=== PATIENT | female | born 1985 | race Two or more races ===

== ENCOUNTER 2023-12-07 13:42 | Emergency (ER) | payer BC ==
[~2023-12-07] VITALS: Ht 162.6 cm; Wt 118.9 kg
[2023-12-07] MEDS ORDERED: HYDR-4902 PO (14:29)
[2023-12-07 15:09] LABS: Basophils # (auto) 0.1 10 ^3/uL (0-0.2); Basophils % (auto) 0.7 % (0.0-2.0); Eosinophils # (auto) 0.1 10 ^3/uL (0-0.8); Eosinophils % (auto) 0.5 % (0.0-7.0); Hemoglobin 13.9 g/dL (12.2-16.2); Lymphocytes # (auto) 2.1 10 ^3/uL (0.4-5.4); Lymphocytes % (auto) 12.2 % (10.0-50.0); Mean Corpuscular Hemoglobin 28.2 pg (28.0-32.0); Mean Corpuscular Hgb Conc. 33.2 g/dL (32.0-36.0); Monocytes # (auto) 0.7 10 ^3/uL (0-1.3); Monocytes % (auto) 4.4 % (0.0-12.0); Neutrophils % (auto) 82.2 % (37.0-80.0); Red Blood Cells 4.94 10^6/uL (4.0-5.20); Red Cell Distribution Width 14.6 % (11.8-14.3)
[2023-12-07 16:19] LABS: Urine Bacteria FEW /hpf (None Seen); Urine Blood 1+ /uL (Negative); Urine Clarity Turbid (Clear); Urine Color Light-Orange (Yellow); Urine Hyaline Cast FEW /lpf (0 - 2); Urine Mucus FEW (None Seen); Urine Protein, UAD 1+ (Negative); Urine Specific Gravity 1.029 (1.001-1.035); Urine Urobilinogen 2 mg/dL (Negative); Urine WBC 2 /hpf (0 - 5); Urine pH 6.5 (5.0-9.0)
[2023-12-07 16:48] VITALS: BP 143/95; PULSE 96; RESP 17; TEMP 98.9; O2SAT 97
== END 2023-12-07 16:50 | disposition home or self-care (01) ==
LOC: ER 13:42
DX: D21.9 Benign neoplasm of connective and other soft tissue, unspecified (principal); R10.2 Pelvic and perineal pain; I10 Essential (primary) hypertension; F12.90 Cannabis use, unspecified, uncomplicated; Z90.49 Acquired absence of other specified parts of digestive tract; Z98.890 Other specified postprocedural states; Z79.891 Long term (current) use of opiate analgesic
CPT/HCPCS: 36415; 81001; 85025

== ENCOUNTER → 2023-12-19 | Outpatient (CLI) | payer BC ==
[~2023-12-19] MED LIST: HYDR-4902 PO
== END | disposition home or self-care (01) ==
LOC: LAB 14:30
PROVIDERS: ATTEND Obstetrics & Gynecology
DX: N93.9 Abnormal uterine and vaginal bleeding, unspecified (principal)

== ENCOUNTER 2024-02-28 06:14 | Inpatient (IN) | payer BC ==
[2024-02-27 07:03] LABS: Basophils # (auto) 0.1 10 ^3/uL (0-0.2); Basophils % (auto) 0.7 % (0.0-2.0); Eosinophils # (auto) 0.2 10 ^3/uL (0-0.8); Eosinophils % (auto) 2.4 % (0.0-7.0); Hematocrit 40.3 % (36.0-46.0); Hemoglobin 13.4 g/dL (12.2-16.2); Lymphocytes # (auto) 2.1 10 ^3/uL (0.4-5.4); Lymphocytes % (auto) 22.5 % (10.0-50.0); Mean Corpuscular Hemoglobin 28.6 pg (28.0-32.0); Mean Corpuscular Hgb Conc. 33.3 g/dL (32.0-36.0); Mean Corpuscular Volume 86.1 fL (80.0-100.0); Monocytes # (auto) 0.5 10 ^3/uL (0-1.3); Monocytes % (auto) 5.2 % (0.0-12.0); Neutrophils # (auto) 6.4 10 ^3/uL (1.6-8.6); Neutrophils % (auto) 69.2 % (37.0-80.0); Nucleated Red Blood Cells % 0.1 %; Platelet Count (auto) 299 10^3/uL (140-450); Red Blood Cells 4.68 10^6/uL (4.0-5.20); Red Cell Distribution Width 15.2 % (11.8-14.3); White Blood Cell 9.2 10^3/uL (4.4-10.8)
[2024-02-27 07:20] LABS: Alanine Aminotransferase 17 U/L (7-40); Albumin 4.5 g/dL (3.2-4.8); Alkaline Phosphatase 82 U/L (46-116); Anion Gap 6 (5-15); Aspartate Aminotransferase < 8 U/L (13-40); BUN/Creatinine Ratio 18.8 (10.0-20.0); Bilirubin, Total 0.3 mg/dL (0.2-1.0); Blood Urea Nitrogen 12 mg/dL (9-23); Calcium 9.2 mg/dL (8.7-10.4); Carbon Dioxide 28 mmol/L (20-30); Chloride 104 mmol/L (98-107); Glucose 108 mg/dL (74-106); Potassium 4.1 mmol/L (3.5-5.1); Sodium 138 mmol/L (136-145); Total Protein 7.1 g/dL (5.7-8.2)
[2024-02-27 07:21] LABS: Urine Bacteria FEW /hpf (None Seen); Urine Blood Negative /uL (Negative); Urine Clarity Turbid (Clear); Urine Color Yellow (Yellow); Urine Mucus FEW (None Seen); Urine Protein, UAD Negative (Negative); Urine Specific Gravity 1.029 (1.001-1.035); Urine Urobilinogen Normal (Negative); Urine WBC 1 /hpf (0 - 5)
[2024-02-27 07:38] LABS: INR 0.94 (0.9-1.15)
[~2024-02-28] VITALS: Ht 162.6 cm; Wt 121.3 kg
[2024-02-28] MEDS ORDERED: CELECOXIB 100 MG CAP ONE (06:43)
[2024-02-28] MEDS ORDERED: GABAPENTIN 300 MG CAP ONE (06:43)
[2024-02-28] MEDS ORDERED: ACETAMINOPHEN IV 100 ML IV ONE ×2 (06:43→11:45)
[2024-02-28] MEDS ORDERED: MIDAZOLAM HCL 2MG/2ML 2ml VIAL (1mg/ml) ONE (07:28)
[2024-02-28] MEDS ORDERED: fentaNYL CITRATE 5 ML ONE (07:28)
[2024-02-28] MEDS ORDERED: MEPERIDINE HCL (25 MG/ML) 1ML VIAL ONE (07:29)
[2024-02-28] MEDS ORDERED: ONDANSETRON HCL 4 MG/2 ML VIAL ONE (07:39)
[2024-02-28] MEDS ORDERED: LIDOCAINE 2% (LOCAL ANESTH.) PF 5ml SDV ONE (07:39)
[2024-02-28] MEDS ORDERED: PROPOFOL 10 MG/ML 20 ML IV ONE (07:39)
[2024-02-28] MEDS: CELECOXIB 100 MG CAP PO ONE (07:45)
[2024-02-28] MEDS: ACETAMINOPHEN IV 1000 MG/100ML (10MG/ML) IV ONE (07:45)
[2024-02-28] MEDS: GABAPENTIN 300 MG CAP PO ONE (07:45)
[2024-02-28] MEDS ORDERED: VASOPRESSIN 20 UNIT/ML ONE (08:17)
[2024-02-28] MEDS ORDERED: BUPIVACAINE 0.5% P/F INJ 10 ML VIAL ONE (08:19)
[2024-02-28] MEDS ORDERED: LIDOCAINE W/ EPINEPHRINE 1% 20ML VIAL ONE (08:19)
[2024-02-28] MEDS ORDERED: DOXAPRAM HCL 20 MG/ML 20ML VIAL INJ IV ONE (10:57)
[2024-02-28] MEDS ORDERED: HYDROmorphone HCL 2 MG/ML VL/or syr IV PRN (11:45)
[2024-02-28 11:48] VITALS: PULSE 91; RESP 19; O2SAT 99
[2024-02-28] MEDS: KETOROLAC TROMETH 30 MG/ML 1ML VIAL IV ONE (12:00)
[2024-02-28] MEDS: ONDANSETRON HCL 4 MG/2 ML VIAL IV ONE (12:00)
[2024-02-28] MEDS: LACTATED RINGER'S 1,000 ML IV SCH (12:00)
[2024-02-28] MEDS ORDERED: MORPHINE SULFATE INJ 2 MG/ml SYRG IV PRN (12:00)
[2024-02-28] MEDS ORDERED: ceFAZolin 1GM/50ML 50 ML IV SCH (14:00)
[2024-02-28 14:56] VITALS: BP 120/76; PULSE 85; RESP 17; TEMP 98.6; O2SAT 96
[2024-02-28] MEDS: ceFAZolin 1GM/50ML 50 ML IV SCH (16:03)
[2024-02-28] MEDS: HYDROcodone-ACET 10/325MG TAB PO PRN (16:11)
[2024-02-28 16:27] VITALS: BP 120/76; PULSE 85; RESP 17; TEMP 98.6; O2SAT 96
[2024-02-28 17:00] VITALS: BP 129/87; PULSE 87; RESP 20; TEMP 98; O2SAT 92
[2024-02-28] MEDS ORDERED: CITA10TA8 PO (17:41)
[2024-02-28] MEDS ORDERED: LISI10TA34 PO (17:41)
[2024-02-28 20:00] VITALS: PULSE 92; RESP 20; O2SAT 92
[2024-02-28 20:45] LABS: Basophils # (auto) 0 10 ^3/uL (0-0.2); Basophils % (auto) 0.2 % (0.0-2.0); Eosinophils # (auto) 0 10 ^3/uL (0-0.8); Hematocrit 37.7 % (36.0-46.0); Hemoglobin 12.3 g/dL (12.2-16.2); Lymphocytes # (auto) 1.2 10 ^3/uL (0.4-5.4); Lymphocytes % (auto) 6.6 % (10.0-50.0); Mean Corpuscular Hemoglobin 28.2 pg (28.0-32.0); Mean Corpuscular Hgb Conc. 32.6 g/dL (32.0-36.0); Mean Corpuscular Volume 86.5 fL (80.0-100.0); Monocytes # (auto) 0.6 10 ^3/uL (0-1.3); Monocytes % (auto) 3.3 % (0.0-12.0); Neutrophils # (auto) 16.8 10 ^3/uL (1.6-8.6); Neutrophils % (auto) 89.9 % (37.0-80.0); Platelet Count (auto) 302 10^3/uL (140-450); Red Blood Cells 4.36 10^6/uL (4.0-5.20); Red Cell Distribution Width 14.9 % (11.8-14.3); White Blood Cell 18.7 10^3/uL (4.4-10.8)
[2024-02-28] MEDS: KETOROLAC TROMETH 30 MG/ML 1ML VIAL IV PRN (20:47)
[2024-02-28] MEDS ORDERED: ROCURONIUM 10MG/ML 10ML VIAL IV ONE (20:47)
[2024-02-28] MEDS: ENOXAPARIN SOD 40 MG/0.4 ML SYRINGE SC ONE (20:47)
[2024-02-28] MEDS ORDERED: METHYLENE BLUE 0.5% 5MG/ML 10ml AMP IV ONE (20:47)
[2024-02-28 21:00] VITALS: BP 136/51; PULSE 92; RESP 20; TEMP 98.8; O2SAT 92
[2024-02-29 01:00] VITALS: BP 112/80; PULSE 91; RESP 18; TEMP 98.3; O2SAT 92
[2024-02-29 05:00] VITALS: BP 106/59; PULSE 83; RESP 19; TEMP 97.9; O2SAT 94
[2024-02-29 06:50] LABS: Basophils # (auto) 0.1 10 ^3/uL (0-0.2); Basophils % (auto) 0.4 % (0.0-2.0); Eosinophils # (auto) 0.1 10 ^3/uL (0-0.8); Eosinophils % (auto) 0.4 % (0.0-7.0); Hematocrit 34.1 % (36.0-46.0); Hemoglobin 11.4 g/dL (12.2-16.2); Lymphocytes # (auto) 2.2 10 ^3/uL (0.4-5.4); Mean Corpuscular Hemoglobin 28.6 pg (28.0-32.0); Mean Corpuscular Hgb Conc. 33.4 g/dL (32.0-36.0); Mean Corpuscular Volume 85.5 fL (80.0-100.0); Monocytes # (auto) 0.7 10 ^3/uL (0-1.3); Monocytes % (auto) 4.9 % (0.0-12.0); Neutrophils # (auto) 10.6 10 ^3/uL (1.6-8.6); Neutrophils % (auto) 78.3 % (37.0-80.0); Platelet Count (auto) 263 10^3/uL (140-450); Red Blood Cells 3.99 10^6/uL (4.0-5.20); White Blood Cell 13.6 10^3/uL (4.4-10.8)
[2024-02-29] MEDS: MILK OF MAGNESIA 30ML SUSP PO SCH (08:20)
[2024-02-29] MEDS: ENOXAPARIN SOD 40 MG/0.4 ML SYRINGE SC SCH (08:22)
[2024-02-29 08:27] LABS: Alanine Aminotransferase 14 U/L (7-40); Albumin 3.9 g/dL (3.2-4.8); Alkaline Phosphatase 70 U/L (46-116); Anion Gap 6 (5-15); Aspartate Aminotransferase 19 U/L (13-40); BUN/Creatinine Ratio 14.3 (10.0-20.0); Bilirubin, Total 0.4 mg/dL (0.2-1.0); Blood Urea Nitrogen 9 mg/dL (9-23); Calcium 8.7 mg/dL (8.7-10.4); Carbon Dioxide 29 mmol/L (20-31); Chloride 102 mmol/L (98-107); Potassium 3.5 mmol/L (3.5-5.1); Sodium 137 mmol/L (136-145)
[2024-02-29 08:30] LABS: Glucose 108 mg/dL (74-106)
[2024-02-29] MEDS ORDERED: HYDR-4798 PO (08:56)
[2024-02-29] MEDS ORDERED: IBUP-1455 PO (08:56)
[2024-02-29 09:22] VITALS: BP 106/55; PULSE 79; RESP 17; TEMP 98.7; O2SAT 97
[2024-02-29] MEDS: MORPHINE SULFATE 4 MG/ML SYR/VIAL IV PRN (09:52)
[2024-02-29 15:09] VITALS: BP 110/58; PULSE 81; RESP 17; TEMP 98.6; O2SAT 97
[2024-02-29 17:00] VITALS: BP 178/96; PULSE 97; RESP 20; TEMP 98.3; O2SAT 98
[2024-02-29 19:50] VITALS: BP 132/86; PULSE 89; RESP 16; TEMP 36.8; O2SAT 94
[2024-02-29] MEDS: ONDANSETRON HCL 4 MG/2 ML VIAL IV PRN (20:21)
== END 2024-02-29 20:48 | disposition home or self-care (01) | DRG 742 ==
LOC: SUR 06:14 → OVERFLOW 11:48 → EAST 14:49
PROVIDERS: ADMIT Obstetrics & Gynecology; ATTEND Obstetrics & Gynecology
PROC: 0UT9FZZ Resection of Uterus, Via Natural or Artificial Opening With Percutaneous Endoscopic Assistance (ICD-10-PCS; 2024-02-28)
PROC: 0UB77ZZ Excision of Bilateral Fallopian Tubes, Via Natural or Artificial Opening (ICD-10-PCS; 2024-02-28)
PROC: 0TJB8ZZ Inspection of Bladder, Via Natural or Artificial Opening Endoscopic (ICD-10-PCS; principal; 2024-02-28 08:41)
DX: D25.9 Leiomyoma of uterus, unspecified (principal); Z68.42 Body mass index [BMI] 45.0-49.9, adult; N92.0 Excessive and frequent menstruation with regular cycle; F32.A Depression, unspecified; E66.01 Morbid (severe) obesity due to excess calories; G89.29 Other chronic pain; I10 Essential (primary) hypertension; Z88.0 Allergy status to penicillin; Z30.2 Encounter for sterilization
CPT/HCPCS: 36415; 80053; 81001; 81025; 84702; 85025; 85610; 85730; 86850; 86900; 86901; 97163; G0378; J0131; J1885; J2001; J2250; J2405; J2704; J3490

== ENCOUNTER → 2024-03-13 | Outpatient (CLI) | payer BC ==
[~2024-03-13] MED LIST changes: +CITA10TA8 PO; +HYDR-4798 PO; -HYDR-4902 PO; +IBUP-1455 PO; +LISI10TA34 PO
[2024-03-13 14:39] LABS: Basophils # (auto) 0.1 10 ^3/uL (0-0.2); Basophils % (auto) 0.9 % (0.0-2.0); Eosinophils # (auto) 0.5 10 ^3/uL (0-0.8); Eosinophils % (auto) 3.1 % (0.0-7.0); Hematocrit 38.8 % (36.0-46.0); Hemoglobin 12.8 g/dL (12.2-16.2); Lymphocytes # (auto) 2.7 10 ^3/uL (0.4-5.4); Lymphocytes % (auto) 18.4 % (10.0-50.0); Mean Corpuscular Hemoglobin 28.1 pg (28.0-32.0); Mean Corpuscular Volume 85.3 fL (80.0-100.0); Monocytes # (auto) 1.1 10 ^3/uL (0-1.3); Monocytes % (auto) 7.2 % (0.0-12.0); Neutrophils # (auto) 10.3 10 ^3/uL (1.6-8.6); Neutrophils % (auto) 70.4 % (37.0-80.0); Platelet Count (auto) 358 10^3/uL (140-450); Red Blood Cells 4.54 10^6/uL (4.0-5.20); Red Cell Distribution Width 15.3 % (11.8-14.3); White Blood Cell 14.7 10^3/uL (4.4-10.8)
[2024-03-13 15:01] LABS: Alanine Aminotransferase 17 U/L (7-40); Alkaline Phosphatase 91 U/L (46-116); Carbon Dioxide 29 mmol/L (20-31); Chloride 103 mmol/L (98-107); Glucose 106 mg/dL (74-106)
[2024-03-13 15:02] LABS: Albumin 4.6 g/dL (3.2-4.8); Anion Gap 7 (5-15); Aspartate Aminotransferase 9 U/L (13-40); BUN/Creatinine Ratio 20.3 (10.0-20.0); Bilirubin, Total 0.3 mg/dL (0.2-1.0); Blood Urea Nitrogen 14 mg/dL (9-23); Potassium 4.2 mmol/L (3.5-5.1); Sodium 139 mmol/L (136-145); Total Protein 7.4 g/dL (5.7-8.2)
== END | disposition home or self-care (01) ==
LOC: LAB 14:09
PROVIDERS: ATTEND Obstetrics & Gynecology
DX: Z01.419 Encounter for gynecological examination (general) (routine) without abnormal findings (principal); M54.50 Low back pain, unspecified; R10.2 Pelvic and perineal pain
CPT/HCPCS: 36415; 80053; 85025; 87086

== ENCOUNTER → 2024-07-07 | Outpatient (CLI) | payer BC ==
[2024-07-07 13:12] LABS: Alanine Aminotransferase 20 U/L (7-40); Albumin 4.8 g/dL (3.2-4.8); Alkaline Phosphatase 82 U/L (46-116); Anion Gap 9 (5-15); Aspartate Aminotransferase 12 U/L (13-40); BUN/Creatinine Ratio 9.7 (10.0-20.0); Blood Urea Nitrogen 7 mg/dL (9-23); Calcium 9.9 mg/dL (8.7-10.4); Carbon Dioxide 27 mmol/L (20-31); Chloride 102 mmol/L (98-107); Glucose 112 mg/dL (74-106); Potassium 4.2 mmol/L (3.5-5.1); Sodium 138 mmol/L (136-145)
[2024-07-07 13:13] LABS: Total Protein 7.3 g/dL (5.7-8.2)
[2024-07-07 13:14] LABS: Bilirubin, Total 0.3 mg/dL (0.2-1.0)
== END | disposition home or self-care (01) ==
LOC: LAB 12:22
PROVIDERS: ATTEND Nurse Practitioner Family
DX: D35.02 Benign neoplasm of left adrenal gland (principal)
CPT/HCPCS: 36415; 80053